=== PATIENT | female | born 1940 | race Caucasian/White ===

== ENCOUNTER 2024-07-06 10:02 | Outpatient (CLI) | payer OTHER | END 2024-07-06 10:03 | disposition home or self-care (01) | LOC: CSHCT 10:02 | PROVIDERS: ATTEND Internal Medicine | DX: D50.9 Iron deficiency anemia, unspecified (principal); I26.99 Other pulmonary embolism without acute cor pulmonale | CPT/HCPCS: 36415; 74177; 82565 ==